=== PATIENT | male | born 1975 | race Caucasian/White ===

== ENCOUNTER 2019-09-24 01:49 | Inpatient (IN) | payer MEDICAID ==
[2019-09-24] VITALS (9 sets, daily range): BP systolic 96–140; BP diastolic 54–88
[~2019-09-24] VITALS: Ht 190.5 cm; Wt 81.2 kg
[2019-09-24] MEDS ORDERED: LORazepam 1 MG tablet PO ONE (01:55)
[2019-09-24] MEDS ORDERED: LORazepam 2 mg/ml vial IV ONE (01:55)
[2019-09-24] MEDS ORDERED: normal saline 1000ML IV soln IVB ONE (01:55)
[2019-09-24] MEDS ORDERED: pantoprazole 40MG/NS 100ML BAG 100 ML IV ONE (02:15)
[2019-09-24 02:16] LABS: BASOPHILS # (AUTO) 0.1 X10'3 (0-0.2); BASOPHILS % (AUTO) 0.8 % (0-1); EOSINOPHILS % (AUTO) 0 % (0-6); HEMATOCRIT 34.1 % (42.0-52.0); HEMOGLOBIN 11.7 g/dl (14.0-17.9); LYMPHOCYTES # (AUTO) 1.8 X10'3 (1.1-4.8); LYMPHOCYTES % (AUTO) 16.7 % (21-51); MEAN CORPUSCULAR HEMOGLOBIN 38.4 PG (27.0-31.0); MEAN CORPUSCULAR HGB CONC 34.4 g/dL (33.0-36.5); MEAN CORPUSCULAR VOLUME 111.7 FL (78-98); MEAN PLATELET VOLUME 12.5 FL (7.4-10.4); MONOCYTES # (AUTO) 0.7 X10'3 (0-0.9); MONOCYTES % (AUTO) 6.3 % (2-12); NEUTROPHILS # (AUTO) 8.4 X10'3 (1.8-7.7); NEUTROPHILS % (AUTO) 76.2 % (42-75); PLATELET COUNT 69 X10'3 (140-440); RED BLOOD COUNT 3.05 X10'6 (4.70-6.10); RED CELL DISTRIBUTION WIDTH 13.9 % (11.5-14.5)
[2019-09-24] MEDS ORDERED: ESCI10TA PO (02:21)
[2019-09-24 02:26] LABS: ALANINE AMINOTRANSFERASE 128 U/L (12-78); ALBUMIN 3.2 G/DL (3.4-5.0); ALKALINE PHOSPHATASE 174 IU/L (46-116); ANION GAP 12 (8-16); ASPARTATE AMINO TRANSFERASE 244 U/L (10-37); BILIRUBIN,TOTAL 3.9 MG/DL (0.1-1.0); BLOOD UREA NITROGEN 41 MG/DL (7-18); CALCIUM 8.6 MG/DL (8.5-10.1); CHLORIDE 101 MMOL/L (99-107); GLUCOSE 98 MG/DL (70-104); LIPASE 80 U/L (73-393); POTASSIUM 4.2 MMOL/L (3.5-5.1); SODIUM 139 MMOL/L (135-145); TOTAL CARBON DIOXIDE 25.9 MMOL/L (24-32); TOTAL PROTEIN 6.4 G/DL (6.4-8.2); eGFR 82 ML/MIN
[2019-09-24 02:27] LABS: CLARITY,URINE CLEAR (Clear); COLOR,URINE YELLOW (Yellow); GLUCOSE, URINE NEGATIVE (Neg); KETONES,URINE 15 mg/dl (Neg); LEUKOCYTE ESTERASE ,URINE NEGATIVE (Neg); NITRITES, URINE NEGATIVE (Neg); OCCULT BLOOD,URINE NEGATIVE (Neg); PH,URINE 6.5 (4.8-8.0); PROTEIN,URINE NEGATIVE (Neg)
[2019-09-24 02:32] LABS: UA COLLECTION TYPE URINAL
[2019-09-24] MEDS ORDERED: magnesium 2GM in 50ml NS 50 ML IV PRN (02:35)
[2019-09-24] MEDS ORDERED: acetaminophen 325mg tablet PO PRN (02:35)
[2019-09-24] MEDS ORDERED: magnesium hydroxide 30ml (MOM) UD suspension PO PRN (02:35)
[2019-09-24] MEDS ORDERED: thiamine inj. 100 MG in normal saline 100ml IV soln 100 ML IV ONE (02:35)
[2019-09-24] MEDS ORDERED: magnesium 4gm in 100ml NS 100 ML IV PRN (02:35)
[2019-09-24] MEDS ORDERED: ondansetron/PF 4mg/2ml inj IV PRN (02:35)
[2019-09-24] MEDS ORDERED: mag hydrox/Alum hydrox/simeth 30ml oral suspension PO PRN (02:35)
[2019-09-24] MEDS ORDERED: HYDROcodone/acetaminophen 5mg/325mg tablet PO PRN (02:35)
[2019-09-24] MEDS ORDERED: potassium CL 10mEq/100ml bag 100 ML IV PRN ×2 (02:35)
[2019-09-24] MEDS ORDERED: morphine 2 MG/ML inj. syringe IV PRN (02:35)
[2019-09-24] MEDS ORDERED: HYDROcodone/acetaminophen 10/325mg tab PO PRN (02:35)
[2019-09-24] MEDS ORDERED: potassium Cl 20 mEq SR tablet PO PRN (02:35)
[2019-09-24] MEDS ORDERED: magnesium Cl slow-release 64mg tablet PO PRN (02:35)
[2019-09-24 02:40] LABS: LARGE PLATELETS MANY; PLATELET ESTIMATE DECREASED; STOMATOCYTES 2+
--- NOTE | 2019-09-24 02:54 | NUR ---
VERIFIED WITH MICROMEDEX THAT THIAMINE AND POTASSIUM WITH NORMAL SALINE ARE Y-SITE COMPATIBLE AND MAITE MILLAN VERIFIED WELL.
--- NOTE | 2019-09-24 03:01 | NUR ---
Patient in room . I have received report from YANA Beard fr ER and had the opportunity to ask questions and assume patient care.
--- NOTE | 2019-09-24 03:15 | NUR ---
BROUGHT TO ROOM [facility]IA [facility], Addendum: 09/24/19 at 0321 by Brandon August RN Amended: Links added.
[2019-09-24] MEDS: potassium Cl 20mEq in NS 1,000 ML IV SCH ×4 (03:24→23:18)
--- NOTE | 2019-09-24 03:45 | NUR ---
pt arrived in the floor a/o x3 with some confusion noted. pt trying to get out in bed, trying to rip his IV out and hallucinating, called Dr. Younger and ordered ativan protocol, given to patient and was helpful
[2019-09-24] MEDS ORDERED: dextrose 50%-water 50ml dispensing syringe IV PRN (03:50)
[2019-09-24] MEDS ORDERED: haloperidol 5mg tablet PO PRN (03:50)
[2019-09-24] MEDS ORDERED: haloperidol lactate 5mg/ml inj IM PRN (03:50)
[2019-09-24] MEDS ORDERED: LORazepam 1 MG tablet PO PRN (03:50)
[2019-09-24] MEDS: LORazepam 2 mg/ml vial IV PRN ×2 (04:06→19:49)
--- NOTE | 2019-09-24 07:08 | NUR ---
Patient in room [facility]. I have received report from YANA Méndez and had the opportunity to ask questions and assume patient care.
[2019-09-24] MEDS: K and/or MAG REPLACEMENT MC SCH ×2 (07:26→19:48)
[2019-09-24] MEDS: MVI, adult No.4 with vit. K 10 ML in dextrose 5% water 500ml 500 ML IV SCH ×2 (08:55)
[2019-09-24] MEDS: MAGNESIUM SULF IV SCH (09:11)
[2019-09-24] MEDS: THIAMINE IV SCH (09:11)
[2019-09-24] MEDS: [UNRECOGNIZED DRUG - OTHER] IV SCH (09:11)
[2019-09-24] MEDS: folic acid 1mg/0.2ml inj IV SCH (09:18)
[2019-09-24] MEDS: ESCITALOPRAM OXALATE 5 MG TABLET PO SCH (09:21)
[2019-09-24] MEDS ORDERED: MIDAZolam 5mg/5ml vial ONE ×2 (11:44)
[2019-09-24] MEDS ORDERED: fentaNYL/PF 50MCG/1 ML 2ML syringe ONE (11:44)
[2019-09-24] MEDS ORDERED: LIDOcaine Viscous 15ml cup ONE (11:45)
--- NOTE | 2019-09-24 18:09 | NUR ---
Received report from YANA Parmar. Patient is awake and alert on room air, in no apparent distress. Resting comfortably. Call light and items of frequent use within reach. Will continue to monitor.
--- NOTE | 2019-09-24 18:19 | NUR ---
Problems reprioritized. Patient report given, questions answered & plan of care reviewed with YANA Benson.
[2019-09-25] VITALS (8 sets, daily range): BP systolic 91–111; BP diastolic 51–69
--- NOTE | 2019-09-25 06:20 | NUR ---
Problems reprioritized. Patient report given, questions answered & plan of care reviewed with YANA Beard.
[2019-09-25 06:39] LABS: BASOPHILS # (AUTO) 0.1 X10'3 (0-0.2); BASOPHILS % (AUTO) 1.2 % (0-1); EOSINOPHILS # (AUTO) 0.1 X10'3 (0-0.9); EOSINOPHILS % (AUTO) 1.7 % (0-6); HEMOGLOBIN 7.2 g/dl (14.0-17.9); LYMPHOCYTES # (AUTO) 0.9 X10'3 (1.1-4.8); LYMPHOCYTES % (AUTO) 21.1 % (21-51); MEAN CORPUSCULAR HEMOGLOBIN 39.6 PG (27.0-31.0); MEAN CORPUSCULAR HGB CONC 35.7 g/dL (33.0-36.5); MEAN CORPUSCULAR VOLUME 111.1 FL (78-98); MEAN PLATELET VOLUME 11.4 FL (7.4-10.4); MONOCYTES # (AUTO) 0.2 X10'3 (0-0.9); MONOCYTES % (AUTO) 5.5 % (2-12); NEUTROPHILS % (AUTO) 70.5 % (42-75); PLATELET COUNT 53 X10'3 (140-440); RED BLOOD COUNT 1.81 X10'6 (4.70-6.10); RED CELL DISTRIBUTION WIDTH 13.5 % (11.5-14.5); WHITE BLOOD COUNT 4.3 X10'3 (4.5-11.0)
[2019-09-25 07:13] LABS: ALANINE AMINOTRANSFERASE 82 U/L (12-78); ALBUMIN 2.6 G/DL (3.4-5.0); ALBUMIN/GLOBULIN RATIO 1.1 (1.1-1.5); ALKALINE PHOSPHATASE 124 IU/L (46-116); AMYLASE 61 U/L (25-115); ANION GAP 7 (8-16); ASPARTATE AMINO TRANSFERASE 175 U/L (10-37); BILIRUBIN,TOTAL 1.7 MG/DL (0.1-1.0); BLOOD UREA NITROGEN 20 MG/DL (7-18); BUN/CREATININE RATIO 36.4 (5.4-32.0); CALCIUM 7.9 MG/DL (8.5-10.1); CHLORIDE 112 MMOL/L (99-107); CREATININE 0.55 MG/DL (0.60-1.10); GLUCOSE 81 MG/DL (70-104); LIPASE 131 U/L (73-393); PHOSPHORUS 2.4 MG/DL (2.3-4.5); POTASSIUM 3.7 MMOL/L (3.5-5.1); SODIUM 145 MMOL/L (135-145); TOTAL CARBON DIOXIDE 26.3 MMOL/L (24-32); eGFR > 90 ML/MIN
--- NOTE | 2019-09-25 07:15 | NUR ---
Patient in room [facility]. I have received report from YANA CRAWLEY and had the opportunity to ask questions and assume patient care.
--- NOTE | 2019-09-25 07:23 | NUR ---
CRITICAL H&H: HGB 7.1 FROM 11.7, HCT 20.1 FROM 34.1, REDRAW VISIT NUMBER [id number]. DR NOTIFIED AWAITING ANDRA BACK
[2019-09-25 07:24] LABS: HEMATOCRIT 20.1 % (42.0-52.0); PLATELET ESTIMATE DECREASED
[2019-09-25 07:25] LABS: LARGE PLATELETS FEW; STOMATOCYTES 2+
[2019-09-25] MEDS: K and/or MAG REPLACEMENT MC SCH ×2 (08:00→19:19)
[2019-09-25] MEDS: THIAMINE IV SCH (09:19)
[2019-09-25] MEDS: [UNRECOGNIZED DRUG - OTHER] IV SCH (09:19)
[2019-09-25] MEDS: MVI, adult No.4 with vit. K 10 ML in dextrose 5% water 500ml 500 ML IV SCH ×2 (09:19)
[2019-09-25] MEDS: MAGNESIUM SULF IV SCH (09:19)
[2019-09-25] MEDS: ESCITALOPRAM OXALATE 5 MG TABLET PO SCH (09:20)
[2019-09-25 12:48] LABS: HEMOGLOBIN 7.3 g/dl (14.0-17.9); MEAN CORPUSCULAR HEMOGLOBIN 38.9 PG (27.0-31.0); MEAN CORPUSCULAR HGB CONC 34.5 g/dL (33.0-36.5); MEAN CORPUSCULAR VOLUME 112.7 FL (78-98); MEAN PLATELET VOLUME 10.7 FL (7.4-10.4); PLATELET COUNT 64 X10'3 (140-440); RED BLOOD COUNT 1.89 X10'6 (4.70-6.10); RED CELL DISTRIBUTION WIDTH 13.6 % (11.5-14.5); WHITE BLOOD COUNT 4.2 X10'3 (4.5-11.0)
[2019-09-25 12:49] LABS: HEMATOCRIT 21.3 % (42.0-52.0)
[2019-09-25] MEDS: folic acid 1mg/0.2ml inj IV SCH (17:22)
--- NOTE | 2019-09-25 18:25 | NUR ---
Received report from YANA Beard. Patient is awake and alert on room air, in no apparent distress. Call light and items of frequent use within reach. Will continue to monitor.
[2019-09-25] MEDS: pantoprazole 40 MG vial IV SCH (19:11)
--- NOTE | 2019-09-25 19:25 | NUR ---
Problems reprioritized. Patient report given, questions answered & plan of care reviewed with YANA CRAWLEY.
[2019-09-25] MEDS: potassium Cl 20mEq in NS 1,000 ML IV SCH (21:28)
[2019-09-25 23:53] LABS: HEMOGLOBIN 7.6 g/dl (14.0-17.9); MEAN CORPUSCULAR HEMOGLOBIN 38.2 PG (27.0-31.0); MEAN CORPUSCULAR HGB CONC 35.3 g/dL (33.0-36.5); MEAN CORPUSCULAR VOLUME 108.5 FL (78-98); MEAN PLATELET VOLUME 11.1 FL (7.4-10.4); PLATELET COUNT 66 X10'3 (140-440); RED CELL DISTRIBUTION WIDTH 16.6 % (11.5-14.5); WHITE BLOOD COUNT 4.1 X10'3 (4.5-11.0)
[2019-09-25 23:55] LABS: HEMATOCRIT 21.7 % (42.0-52.0)
[2019-09-26] VITALS (11 sets, daily range): BP systolic 108–147; BP diastolic 68–92
--- NOTE | 2019-09-26 02:10 | NUR ---
Blood bank called to say blood is ready. Will obtain units of PRBC and administer as per MD order.
[2019-09-26] MEDS: potassium Cl 20mEq in NS 1,000 ML IV SCH ×3 (04:35→22:32)
--- NOTE | 2019-09-26 06:10 | NUR ---
Problems reprioritized. Patient report given, questions answered & plan of care reviewed with YANA Parmar.
--- NOTE | 2019-09-26 06:13 | NUR ---
Patient in room [facility]. I have received report from YANA Benson and had the opportunity to ask questions and assume patient care.
[2019-09-26 07:23] LABS: BASOPHILS # (AUTO) 0.1 X10'3 (0-0.2); BASOPHILS % (AUTO) 1.3 % (0-1); EOSINOPHILS # (AUTO) 0.2 X10'3 (0-0.9); EOSINOPHILS % (AUTO) 3.3 % (0-6); HEMATOCRIT 27.5 % (42.0-52.0); HEMOGLOBIN 9.6 g/dl (14.0-17.9); LYMPHOCYTES # (AUTO) 1.2 X10'3 (1.1-4.8); LYMPHOCYTES % (AUTO) 25.3 % (21-51); MEAN CORPUSCULAR HEMOGLOBIN 36.1 PG (27.0-31.0); MEAN CORPUSCULAR HGB CONC 34.9 g/dL (33.0-36.5); MEAN CORPUSCULAR VOLUME 103.4 FL (78-98); MEAN PLATELET VOLUME 10.7 FL (7.4-10.4); MONOCYTES # (AUTO) 0.3 X10'3 (0-0.9); MONOCYTES % (AUTO) 5.4 % (2-12); NEUTROPHILS % (AUTO) 64.7 % (42-75); PLATELET COUNT 70 X10'3 (140-440); RED BLOOD COUNT 2.66 X10'6 (4.70-6.10); RED CELL DISTRIBUTION WIDTH 18.6 % (11.5-14.5); WHITE BLOOD COUNT 4.6 X10'3 (4.5-11.0)
[2019-09-26 07:45] LABS: ALANINE AMINOTRANSFERASE 112 U/L (12-78); ALBUMIN 2.7 G/DL (3.4-5.0); ALKALINE PHOSPHATASE 152 IU/L (46-116); AMYLASE 79 U/L (25-115); ANION GAP 6 (8-16); ASPARTATE AMINO TRANSFERASE 193 U/L (10-37); BILIRUBIN,TOTAL 1.3 MG/DL (0.1-1.0); BLOOD UREA NITROGEN 8 MG/DL (7-18); BUN/CREATININE RATIO 13.3 (5.4-32.0); CALCIUM 8.1 MG/DL (8.5-10.1); CHLORIDE 107 MMOL/L (99-107); GLUCOSE 84 MG/DL (70-104); LIPASE 194 U/L (73-393); PHOSPHORUS 3.3 MG/DL (2.3-4.5); POTASSIUM 3.4 MMOL/L (3.5-5.1); SODIUM 140 MMOL/L (135-145); TOTAL CARBON DIOXIDE 26.7 MMOL/L (24-32); TOTAL PROTEIN 5.4 G/DL (6.4-8.2); eGFR > 90 ML/MIN
[2019-09-26] MEDS: folic acid 1mg tablet PO SCH (08:01)
[2019-09-26] MEDS: ESCITALOPRAM OXALATE 5 MG TABLET PO SCH (08:01)
[2019-09-26] MEDS: multivitamins, therapeutics tablet PO SCH (08:01)
[2019-09-26] MEDS: pantoprazole 40 MG vial IV SCH (08:01)
[2019-09-26] MEDS: thiamine 100mg tablet PO SCH (08:01)
[2019-09-26] MEDS: K and/or MAG REPLACEMENT MC SCH ×2 (08:02→20:00)
[2019-09-26 08:03] LABS: ANISOCYTOSIS 2+; PLATELET ESTIMATE DECREASED; STOMATOCYTES 1+
[2019-09-26] MEDS: potassium Cl 20 mEq SR tablet PO PRN ×3 (08:03→17:14)
[2019-09-26 08:04] LABS: LARGE PLATELETS FEW
--- NOTE | 2019-09-26 18:11 | NUR ---
Problems reprioritized. Patient report given, questions answered & plan of care reviewed with YANA Myles.
[2019-09-26] MEDS: pantoprazole 40mg Tablet.DR PO SCH (19:34)
[2019-09-27] VITALS: BP 147/73
[2019-09-27 05:17] LABS: BASOPHILS # (AUTO) 0.1 X10'3 (0-0.2); BASOPHILS % (AUTO) 1.1 % (0-1); EOSINOPHILS # (AUTO) 0.1 X10'3 (0-0.9); EOSINOPHILS % (AUTO) 2.7 % (0-6); LYMPHOCYTES # (AUTO) 1.3 X10'3 (1.1-4.8); LYMPHOCYTES % (AUTO) 26.5 % (21-51); MEAN CORPUSCULAR HEMOGLOBIN 35.8 PG (27.0-31.0); MEAN CORPUSCULAR HGB CONC 34.4 g/dL (33.0-36.5); MEAN PLATELET VOLUME 10.6 FL (7.4-10.4); MONOCYTES # (AUTO) 0.4 X10'3 (0-0.9); MONOCYTES % (AUTO) 7.5 % (2-12); NEUTROPHILS % (AUTO) 62.2 % (42-75); PLATELET COUNT 94 X10'3 (140-440); RED BLOOD COUNT 2.79 X10'6 (4.70-6.10); RED CELL DISTRIBUTION WIDTH 19.4 % (11.5-14.5); WHITE BLOOD COUNT 4.9 X10'3 (4.5-11.0)
[2019-09-27 06:07] LABS: ALANINE AMINOTRANSFERASE 133 U/L (12-78); ALBUMIN 2.8 G/DL (3.4-5.0); ALBUMIN/GLOBULIN RATIO 0.9 (1.1-1.5); ALKALINE PHOSPHATASE 161 IU/L (46-116); AMYLASE 81 U/L (25-115); ANION GAP 6 (8-16); ASPARTATE AMINO TRANSFERASE 164 U/L (10-37); BILIRUBIN,TOTAL 1.2 MG/DL (0.1-1.0); BLOOD UREA NITROGEN 5 MG/DL (7-18); BUN/CREATININE RATIO 8.5 (5.4-32.0); CALCIUM 8.5 MG/DL (8.5-10.1); CHLORIDE 108 MMOL/L (99-107); CREATININE 0.59 MG/DL (0.60-1.10); GLUCOSE 90 MG/DL (70-104); LIPASE 179 U/L (73-393); PHOSPHORUS 3.4 MG/DL (2.3-4.5); POTASSIUM 3.7 MMOL/L (3.5-5.1); SODIUM 141 MMOL/L (135-145); TOTAL CARBON DIOXIDE 26.7 MMOL/L (24-32); TOTAL PROTEIN 5.8 G/DL (6.4-8.2); eGFR > 90 ML/MIN
--- NOTE | 2019-09-27 06:13 | NUR ---
Problems reprioritized. Patient report given, questions answered & plan of care reviewed with Ghulam MILLAN.
--- NOTE | 2019-09-27 06:26 | NUR ---
Patient in room [facility]. I have received report from YANA Myles and had the opportunity to ask questions and assume patient care.
[2019-09-27] MEDS: K and/or MAG REPLACEMENT MC SCH (07:00)
[2019-09-27] MEDS: multivitamins, therapeutics tablet PO SCH (07:29)
[2019-09-27] MEDS: ESCITALOPRAM OXALATE 5 MG TABLET PO SCH (07:29)
[2019-09-27] MEDS: folic acid 1mg tablet PO SCH (07:29)
[2019-09-27] MEDS: thiamine 100mg tablet PO SCH (07:29)
[2019-09-27] MEDS: pantoprazole 40mg Tablet.DR PO SCH (07:29)
[2019-09-27 07:30] VITALS: BP 133/86
[2019-09-27] MEDS ORDERED: PANT-47 PO (10:23)
--- NOTE | 2019-09-27 11:00 | NUR ---
Discharged. Edu on meds, follow-up and GIB. PIV off and tele returned. Stable per Dr Younger for DC. Left and ambulated to be picked up by .
== END 2019-09-27 10:58 | disposition home or self-care (01) | DRG 242 ==
LOC: ER 01:49 → ED HOLD 02:51 → UNDOADMIN 03:09 → ED HOLD 03:09 → SUR 3N 03:15
PROVIDERS: ADMIT Internal Medicine; ATTEND Internal Medicine
PROC: 0W3P8ZZ Control Bleeding in Gastrointestinal Tract, Via Natural or Artificial Opening Endoscopic (ICD-10-PCS; principal; 2019-09-24)
PROC: 30233N1 Transfusion of Nonautologous Red Blood Cells into Peripheral Vein, Percutaneous Approach (ICD-10-PCS; 2019-09-25)
DX: K22.6 Gastro-esophageal laceration-hemorrhage syndrome (principal); D61.818 Other pancytopenia; K70.9 Alcoholic liver disease, unspecified; K27.4 Chronic or unspecified peptic ulcer, site unspecified, with hemorrhage; F10.239 Alcohol dependence with withdrawal, unspecified; F17.210 Nicotine dependence, cigarettes, uncomplicated; K44.9 Diaphragmatic hernia without obstruction or gangrene
CPT/HCPCS: 36415; 43255; 80053; 81003; 82150; 82948; 83690; 83735; 84100; 85025; 85027; 85610; 86885; 86900; 86901; 86920; 87081; 93005; 96374; 97110; 97116; 97162; 97530; 99152; 99285; A4620; C9113; G0378; J2060; J2250; J3010; J3411; J3475; J3480; J3490; J7030; J7040; J7060; P9016